=== PATIENT | male | born 1950 | race Two or more races ===

== ENCOUNTER 2019-03-14 11:53 | Inpatient (IN) | payer OTHER ==
[2019-03-26] MEDS ORDERED: GLIPIZIDE ER2.5 MG PO (13:08)
[2019-03-26] MEDS ORDERED: METFORMIN HCL500 MG PO (13:08)
[2019-03-26] MEDS ORDERED: NEURONTIN 600MG (14:18)
[2019-03-27] MEDS ORDERED: NEURONTIN600 MG (08:27)
[2019-03-27] MEDS ORDERED: METFORMIN HCL1000 MG PO (08:28)
[2019-04-01] MEDS ORDERED: OXYC1TAB9 PO (15:27)
[2019-04-01] MEDS ORDERED: INTESTINEX680 M1 PO (15:27)
== END 2019-04-01 17:06 | disposition home or self-care (01) | DRG 331 ==
LOC: SURG 03-19 10:15 → EDUNIT# 03-19 10:15 → SURG 03-27 06:36 → O/R 03-27 06:36 → SURG 03-27 10:15 → SURH 03-27 13:31 → SURG 03-27 16:00
PROVIDERS: ADMIT Surgery
PROC: 07BB4ZZ Excision of Mesenteric Lymphatic, Percutaneous Endoscopic Approach (ICD-10-PCS; 2019-03-27)
PROC: 0DTF4ZZ Resection of Right Large Intestine, Percutaneous Endoscopic Approach (ICD-10-PCS; principal; 2019-03-27 18:30)
DX: C18.2 Malignant neoplasm of ascending colon (principal); R59.0 Localized enlarged lymph nodes; E66.09 Other obesity due to excess calories; I10 Essential (primary) hypertension

== ENCOUNTER → 2019-03-14 12:47 | Outpatient (CLI) | payer OTHER ==
[~2019-03-14 12:47] MED LIST: GLIPIZIDE ER2.5 MG PO; METFORMIN HCL1000 MG PO; METFORMIN HCL500 MG PO; NEURONTIN 600MG; NEURONTIN600 MG
== END | disposition home or self-care (01) ==
LOC: LAB 12:47 → RAD 12:47
DX: C18.3 Malignant neoplasm of hepatic flexure (principal); R59.0 Localized enlarged lymph nodes

== ENCOUNTER → 2019-03-21 | Outpatient (CLI) | payer OTHER | END | disposition home or self-care (01) | LOC: TOM 03-19 07:30 | DX: C18.3 Malignant neoplasm of hepatic flexure (principal); R59.0 Localized enlarged lymph nodes | CPT/HCPCS: 74177; Q9965 ==

== ENCOUNTER 2020-04-27 06:30 | Day surgery (SDC) | payer OTHER ==
[~2020-04-27 06:30] MED LIST changes: +INTESTINEX680 M1 PO; +OXYC1TAB9 PO
== END 2020-04-27 10:10 | disposition home or self-care (01) ==
LOC: AMB-ENDOS 06:30
PROVIDERS: ATTEND Surgery
DX: D12.4 Benign neoplasm of descending colon (principal); K64.8 Other hemorrhoids; Z20.828 Contact with and (suspected) exposure to other viral communicable diseases